=== PATIENT | male | born 1975 ===

== ENCOUNTER 2017-09-29 13:38 | Emergency (ER) | payer MEDICARE, OTHER ==
[2017-09-29 13:39] VITALS: BMI 20.3
[2017-09-29 13:46] VITALS: BP 118/70; PULSE 85; RESP 16; TEMP 97.8; O2SAT 99
--- NOTE | 2017-09-29 13:55 | ED PDOC ---
Lower Extremity Pain/Injury Time Seen by Provider: 09/29/17 13:45 Chief Complaint (Nursing): Lower Extremity Problem/Injury Chief Complaint (Provider): Lower Extremity Problem/Injury History Per: Patient History/Exam Limitations: no limitations Onset/Duration Of Symptoms: Days (x3) Current Symptoms Are (Timing): Still Present Additional Complaint(s): 42 year old male with previous medical history of diabetes, who presents to the emergency department with a complaint of right foot, 2nd digit black discoloration status post getting toenails cut by podiatrists 3 days ago. Denied any pain to foot. 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; bilateral kidney - Family History Family History: States: Unknown Family Hx - Immunization History Hx Tetanus Toxoid Vaccination: No Hx Influenza Vaccination: No Hx Pneumococcal Vaccination: No - Home Medications Home Medications: Ambulatory Orders Medication Instructions Recorded Mycophenolate [Cellcept Cap] 250 mg PO Q12 06/23/14 Sulfamethoxazole/Trimethoprim 1 tab PO DAILY 06/23/14 [Bactrim 400-80 mg Tablet] Apixaban [Eliquis] 5 mg PO BID 07/13/16 Gabapentin [Neurontin] 300 mg PO TID 07/13/16 Omeprazole 40 mg PO DAILY 07/13/16 Insulin Detemir [Levemir] 15 units SC HS 11/01/16 Insulin Lispro [Humalog Kwikpen 4 unit SQ ACTID 11/01/16 U-100] Zolpidem [Ambien] 10 mg PO HS 12/06/16 amLODIPine [Norvasc] 10 mg PO DAILY 12/06/16 oxyCODONE [oxyCODONE Immediate 10 mg PO Q6 PRN 12/06/16 Release Tab] Ondansetron ODT [Zofran ODT] 4 mg PO DAILY PRN #10 odt 12/07/16 Tacrolimus [Prograf] 1 mg PO BID #1 capsule 12/07/16 - Allergies Allergies/Adverse Reactions: Allergies Allergy/AdvReac Type Severity Reaction Status Date / Time No Known Allergies Allergy Verified 11/01/16 09:18 Review of Systems ROS Statement: Except As Marked, All Systems Reviewed And Found Negative Musculoskeletal: Positive for: Other (right foot, 2nd digit black discoloration) . Negative for: Foot Pain (right) Physical Exam - Reviewed Nursing Documentation Reviewed: Yes Vital Signs Reviewed: Yes - Physical Exam Appears: Positive for: Well, Non-toxic, No Acute Distress Cardiovascular/Chest: Positive for: Regular Rate, Rhythm, Chest Non Tender Respiratory: Positive for: Normal Breath Sounds. Negative for: Decreased Breath Sounds, Respiratory Distress Extremity: Positive for: Deformity (right foot, 5th digit amputation; left leg BKA), Other (right foot, 2nd digit ecchymotic distal toe). Negative for: Tenderness (right foot), Calf Tenderness, Swelling (right foot) Neurologic/Psych: Positive for: Alert (x3), Oriented - Laboratory Results Result Diagrams: 09/29/17 14:00 09/29/17 17:01 - ECG O2 Sat by Pulse Oximetry: 99 (RA) Pulse Ox Interpretation: Normal Medical Decision Making Medical Decision Making: IV access established and diagnostics ordered. IVF started. Podiatry at bedside, for evaluation. See notes. FS on re-eval 288 BUN and CR elevated. Pt reports he is aware and saw his nephrologost who told him to drink alot of water, he is very dehydrated. Pt reports he is scheduled to follow up again in December. Pt unsure of physicians name, reports he see's his taker out at [facility] Case discussed with ED MD, Dr. Carter, who agreed pt stable for discharge at this time and importance of follow up stressed. Pt reports he will call his Dr tomorrow. Disposition - Clinical Impression Clinical Impression: Abrasion, Hyperglycemia, Renal insufficiency - Patient ED Disposition Is Patient to be Admitted: No - Disposition Referrals: Podiatry Clinic [Outside] Disposition: Routine/Home Disposition Time: 18:16 Condition: STABLE Additional Instructions: Follow up with taker out tomorrow! Instructions: Diabetic Foot Care (ED), Renal Failure Diet (DC) Forms: [employer] (Amharic)
[2017-09-29 14:29] LABS: BASO % 0.3 % (0.0-2.0); EOS # 0.1 K/uL (0.0-0.7); EOS % 1.2 % (0.0-4.0); HEMATOCRIT 32.9 % (35.0-51.0); LYMPH # 1.4 K/uL (1.0-4.3); LYMPH % 14.8 % (20.0-40.0); MEAN CELL VOLUME 85.5 fl (80.0-94.0); MEAN CORPUSCULAR HEMOGLOBIN 27.2 pg (27.0-31.0); MEAN CORPUSCULAR HGB CONC 31.8 g/dL (33.0-37.0); MEAN PLATELET VOLUME 8.5 fl (7.2-11.7); MONO # 0.3 K/uL (0.0-0.8); MONO % 3.8 % (0.0-10.0); NEUT # 7.4 K/uL (1.8-7.0); NEUT % 79.9 % (50.0-75.0); RED CELL DISTRIBUTION WIDTH 14.8 % (11.5-14.5); WHITE BLOOD COUNT 9.2 K/uL (4.8-10.8)
[2017-09-29 15:00] LABS: ALB/GLOB RATIO 1.3 (1.0-2.1); BILIRUBIN,TOTAL 0.4 mg/dl (0.2-1.3); CALCIUM 9.7 mg/dL (8.4-10.2); POTASSIUM 4.9 MMOL/L (3.6-5.0); TOTAL PROTEIN 7.9 G/DL (6.3-8.2)
[2017-09-29] MEDS ORDERED: Sodium Chloride 0.9% 1,000 ML IV STA (15:02)
[2017-09-29] MEDS ORDERED: Insulin Regular 100 units/ml SC STA (15:02)
--- NOTE | 2017-09-29 15:46 | CP.PCM.CON ---
History of Present Illness - History of Present Illness History of Present Illness: 42 y/o male with PMHx of diabetes seen at bedside in ED for right foot 2nd toe discoloration. Pt says he had a health and safety manager come to his house a few days ago and cut his toenails, and he accidentally cut him and made him bleed. Pt says the doctor applied iodine and a bandaid. Pt says he left it intact until today when he took it off and noticed some discoloration that was dark brown-black in appearance. Pt denies having any pain and says he has no sensation in his foot. Pt denies any drainage from the toe. Pt denies F/C/N/V/CP/SOB. PMHx: DM PSH: L BKA, kidney transplant All: NKDA Social: denies EtOH, cigarette or illicit drug use Review of Systems - Review of Systems All systems: reviewed and no additional remarkable complaints except (per HPI) Past Patient History - Infectious Disease Hx of Infectious Diseases: None - Past Medical History & Family History Past Medical History?: Yes - Past Social History Smoking Status: Never Smoked - CARDIAC Hx Atrial Fibrillation: Yes Hx Cardia Arrhythmia: Yes (hx of a-fib) Hx Hypertension: Yes - PULMONARY Hx Respiratory Disorders: No - NEUROLOGICAL Hx Neurological Disorder: No - HEENT Hx HEENT Problems: No - RENAL Hx Chronic Kidney Disease: Yes (Kidney transplant, no current dialysis ) Hx Kidney Stones: No - ENDOCRINE/METABOLIC Hx Hyperthyroidism: No Hx Hypothyroidism: No - HEMATOLOGICAL/ONCOLOGICAL Hx Human Immunodeficiency Virus (HIV): No - INTEGUMENTARY Hx Dermatological Problems: No - MUSCULOSKELETAL/RHEUMATOLOGICAL Hx Musculoskeletal Disorders: Yes Hx Falls: No Other/Comment: Left BKA - GASTROINTESTINAL Hx Gastritis: Yes - GENITOURINARY/GYNECOLOGICAL Hx Genitourinary Disorders: No - PSYCHIATRIC Hx Psychophysiologic Disorder: No Hx Substance Use: No - SURGICAL HISTORY Hx Surgeries: Yes Hx Amputation: Yes (Left BKA) Hx Arteriovenous Shunt: Yes (LEFT 2006) Hx Cataract Extraction: Yes Hx Eye Surgery: Yes Hx Kidney Transplant: Yes (right kidney transplant) Hx Musculoskeletal Surgery: Yes (R ankle sx I and D 10 yrs ago) Other/Comment: RT ANKLE SX I and D 10 YRS AGO, prosthesis left leg in january - ANESTHESIA Hx Anesthesia: Yes Hx Anesthesia Reactions: No Hx Malignant Hyperthermia: No Meds Allergies/Adverse Reactions: Allergies Allergy/AdvReac Type Severity Reaction Status Date / Time No Known Allergies Allergy Verified 11/01/16 09:18 - Medications Medications: Current Medications Sodium Chloride (Sodium Chloride 0.9%) 1,000 mls @ 999 mls/hr IV .Q1H1M STA Stop: 09/29/17 16:02 Last Admin: 09/29/17 15:30 Dose: 999 mls/hr Physical Exam - Constitutional Appears: Well, Non-toxic, No Acute Distress - Extremities Exam Additional comments: Left BKA Right lower extremity exam: Vasc: DP/PT pulses palpable 2/4. Temperature gradient warm to cool. No localized increase in temperature noted to right 2nd digit. No pedal edema noted. CFT < 3 sec x 4 digits. Derm: Dark brown discoloration noted to distal aspect of 2nd digit. 0.1cm superficial pre-ulcerative lesion noted with no erythema, no drainage, no malodor, no purulence. No cellulitic changes noted. 2nd digit nail fully attached to nail matrix. No clinical suspicion of infection. Neuro: Protective sensation is grossly diminished Ortho: No tenderness to palpation, passive flexion or passive extension of 2nd digit. Previous 5th digit amputation site noted - Neurological Exam Neurological exam: Alert, Oriented x3 - Psychiatric Exam Psychiatric exam: Normal Affect, Normal Mood Results - Vital Signs Recent Vital Signs: Last Vital Signs Temp 97.8 F 09/29/17 13:41 Pulse 85 09/29/17 13:41 Resp 16 09/29/17 13:41 BP 118/70 09/29/17 13:41 Pulse Ox 99 09/29/17 14:01 - Labs Result Diagrams: 09/29/17 14:00 09/29/17 14:00 Labs: Laboratory Results - last 24 hr 09/29/17 09/29/17 14:00 14:00 WBC 9.2 RBC 3.85 L Hgb 10.5 L D Hct 32.9 L MCV 85.5 MCH 27.2 MCHC 31.8 L RDW 14.8 H Plt Count 251 MPV 8.5 Neut % (Auto) 79.9 H Lymph % (Auto) 14.8 L [place] % (Auto) 3.8 Eos % (Auto) 1.2 Baso % (Auto) 0.3 Neut # 7.4 H Lymph # 1.4 [place] # 0.3 Eos # 0.1 Baso # 0.0 Sodium 138 Potassium 4.9 Chloride 100 Carbon Dioxide 25 Anion Gap 18 BUN 65 H Creatinine 2.9 H Est GFR ( Amer) 29 Est GFR (Non-Af Amer) 24 Random Glucose 414 H* D Calcium 9.7 Total Bilirubin 0.4 AST 27 ALT 39 Alkaline Phosphatase 133 H Total Protein 7.9 Albumin 4.5 Globulin 3.5 Albumin/Globulin Ratio 1.3 Assessment & Plan - Assessment and Plan (Free Text) Assessment: 42 y/o diabetic male with right 2nd digit abrasion Plan: Pt seen and evaluated in ED Discussed plan with attending Dr. Godfrey Labs and vitals reviewed- afebrile, WBC 9.2 Bacitracin and bandaid applied to R foot 2nd digit Pt instructed to change bandage with antibiotic ointment daily and closely monitor for any signs of infection, including swelling, redness or drainage Pt to follow up in [facility] podiatry clinic with Dr. Godfrey on 10/07 Thank you for this consult
--- NOTE | 2017-09-29 15:49 | RAD ---
HISTORY: necrosis COMPARISON: No prior FINDINGS: BONES: Status post resection of the 5th toe. JOINTS: Normal. No osteoarthritis. SOFT TISSUE: Normal. OTHER FINDINGS: None . IMPRESSION: No acute fracture.
[2017-09-29 17:03] LABS: VENOUS BLOOD GAS BASE EXCESS 0.1 mmol/L (0.0-2.0); VENOUS BLOOD GAS PCO2 43 mmHg (40-60); VENOUS BLOOD PH 7.38 (7.32-7.43)
[2017-09-29 17:22] LABS: ALB/GLOB RATIO 1.2 (1.0-2.1); BILIRUBIN,TOTAL 0.3 mg/dl (0.2-1.3); POTASSIUM 4.8 MMOL/L (3.6-5.0); TOTAL PROTEIN 6.9 G/DL (6.3-8.2)
== END 2017-09-29 17:32 | disposition home or self-care (01) ==
LOC: H.ER 13:38
DX: S90.414A Abrasion, right lesser toe(s), initial encounter (principal); W22.8XXA Striking against or struck by other objects, initial encounter; Y92.89 Other specified places as the place of occurrence of the external cause; E11.22 Type 2 diabetes mellitus with diabetic chronic kidney disease; E11.65 Type 2 diabetes mellitus with hyperglycemia; I12.9 Hypertensive chronic kidney disease with stage 1 through stage 4 chronic kidney disease, or unspecified chronic kidney disease; I48.91 Unspecified atrial fibrillation; K29.70 Gastritis, unspecified, without bleeding; Z79.01 Long term (current) use of anticoagulants; Z79.4 Long term (current) use of insulin; Z89.512 Acquired absence of left leg below knee; Z94.0 Kidney transplant status
CPT/HCPCS: 73660; 80053; 82803; 82948; 85025; 87040; 96360; 99283; J7040

== ENCOUNTER 2017-10-07 17:12 | Emergency (ER) | payer MEDICARE, OTHER ==
[2017-10-07 17:13] VITALS: BMI 20.3
[2017-10-07 17:23] VITALS: RESP 18; O2SAT 100
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
[2017-10-07] MEDS ORDERED: Acetaminophen-Codeine 300/30 mg Tab ONE (18:18)
[2017-10-07] MEDS: Acetaminophen-Codeine 300/30 mg Tab PO STA (18:19)
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
[2017-10-07 23:06] VITALS: BP 128/82; PULSE 86; TEMP 98
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
== END 2017-10-07 23:08 | disposition home or self-care (01) ==
LOC: H.ER 17:12
DX: S62.300A Unspecified fracture of second metacarpal bone, right hand, initial encounter for closed fracture (principal); S62.302A Unspecified fracture of third metacarpal bone, right hand, initial encounter for closed fracture; W05.1XXA Fall from non-moving nonmotorized scooter, initial encounter; Y93.9 Activity, unspecified; I12.9 Hypertensive chronic kidney disease with stage 1 through stage 4 chronic kidney disease, or unspecified chronic kidney disease; N18.9 Chronic kidney disease, unspecified; I48.91 Unspecified atrial fibrillation; E11.9 Type 2 diabetes mellitus without complications; Z79.4 Long term (current) use of insulin; Z23 Encounter for immunization